=== PATIENT | male | born 1985 | race Caucasian/White ===

== ENCOUNTER 2017-03-26 21:59 | Emergency (ER) | payer SELFPAY ==
[~2017-03-26] VITALS: Ht 170.2 cm; Wt 97.5 kg
[2017-03-26 22:03] VITALS: Ht 170.2 cm; Wt 97.5 kg
[2017-03-26] MEDS ORDERED: KETOROLAC 60 MG INJ IM STA (22:33)
[2017-03-26] MEDS ORDERED: NAPR-688 PO (22:52)
[2017-03-26] MEDS ORDERED: HYDR-906 PO (22:52)
[2017-03-26] MEDS ORDERED: morphine 10 MG INJ IM ONE (23:00)
--- NOTE | 2017-03-26 23:40 | ERD ---
ER Documentation Chief Complaint Date/Time DATE: 03/26/17 TIME: 23:37 Chief Complaint left rib pain after hyperextension of arms during exercises HPI 32-year-old male presents with left-sided chest pain that began approximately 40 minutes prior to arrival. He was playing video games at home when he suddenly lift his arms up to stretch suddenly got left-sided chest pain that hurt with arm movement as well as when he took a deep breath and let the breath out. He has been lifting heavy things all week is that as his occupation. He has no shortness of breath, nausea or vomiting. Denies any cardiac risk factor. ROS All systems reviewed and are negative except as per history of present illness. Medications Home Meds Active Scripts Hydrocodone/Acetaminophen ([place] 5-325 Tablet) 1 Each Tablet, 1 EACH PO Q6, #20 TAB Prov:FLASH PETE DO 03/26/17 Naproxen* (Naproxen*) 500 Mg Tablet, 500 MG PO BID, #20 TAB Prov:FLASH PETE DO 03/26/17 Allergies Allergies: Coded Allergies: No Known Allergy (Unverified , 03/26/17) PMhx/Soc Medical and Surgical Hx: pt denies Medical Hx, pt denies Surgical Hx Hx Alcohol Use: No Hx Substance Use: No Hx Tobacco Use: No Smoking Status: Never smoker Physical Exam Vitals Vital Signs Date Time Temp Pulse Resp B/P Pulse Ox O2 Delivery O2 Flow Rate FiO2 03/26/17 22:03 97.8 64 20 122/73 99 Physical Exam Const: [] Mild distress Eyes: Normal Conjunctiva ENT: Normal External Ears, Nose and Mouth. Neck: Full range of motion..~ No meningismus. Resp: Clear to auscultation bilaterally Cardio: Regular rate and rhythm, no murmurs Skin: No petechiae or rashes Ext: No cyanosis, or edema, Left chest wall with exquisite tenderness to the upper ribs along the costochondral junction on the left chest. Neur: Awake and alert Results 24 hrs Current Medications Medications (Trade) Dose Ordered Sig/Roseann Route PRN Reason Start Time Stop Time Status Last Admin Dose Admin Ketorolac Tromethamine (Toradol) 60 mg ONCE STAT IM 03/26/17 22:33 03/26/17 22:36 DC 03/26/17 22:56 Morphine Sulfate (morphine) 4 mg ONCE ONCE IM 03/26/17 23:00 03/26/17 23:01 DC 03/26/17 22:55 Procedures/MDM 32-year-old male with costochondritis. History and physical exam are consistent with costochondritis. Patient did not mention some left hand tingling EKG was performed which shows no signs of ischemia whatsoever. We will discharge her with naproxen with instructions to take it for 7 days straight also giving [place] for severe pain. Primary care follow-up in 2 3 days and strict return precautions. EKG interpretation: Normal sinus rhythm rate of 60, normal axis, no ST or T- wave changes concerning for acute ischemia, near normal intervals. Normal EKG Departure Diagnosis: Primary Impression: Costochondritis, acute Condition: Stable Patient Instructions: Chest Wall Pain, Costochondritis Referrals: [facility] YOU HAVE RECEIVED A MEDICAL SCREENING EXAM AND THE RESULTS INDICATE THAT YOU DO NOT HAVE A CONDITION THAT REQUIRES URGENT TREATMENT IN THE EMERGENCY DEPARTMENT. FURTHER EVALUATION AND TREATMENT OF YOUR CONDITION CAN WAIT UNTIL YOU ARE SEEN IN YOUR DOCTORS OFFICE WITHIN THE NEXT 1-2 DAYS. IT IS YOUR RESPONSIBILITY TO MAKE AN APPOINTMENT FOR [facility]. IF YOU HAVE A PRIMARY DOCTOR --you should call your primary doctor and schedule an appointment IF YOU DO NOT HAVE A PRIMARY DOCTOR YOU CAN CALL OUR PHYSICIAN REFERRAL HOTLINE AT IF YOU CAN NOT AFFORD TO SEE A PHYSICIAN YOU CAN CHOSE FROM THE FOLLOWING [facility] [address] [facility]. [facility] [address] [facility] [facility] [address] [facility] [facility] [address] [facility]. [facility] [address] [facility]. [facility]. [address] Additional Instructions: Call your primary care doctor TOMORROW for an appointment during the next 2-3 days.See the doctor sooner or return here if your condition worsens before your appointment time. FLASH PETE DO Mar 26, 2017 23:40
[2017-03-26 23:50] VITALS: BP 109/68; PULSE 66; RESP 20
== END 2017-03-26 23:52 | disposition home or self-care (01) ==
LOC: FTE 21:59
DX: M94.0 Chondrocostal junction syndrome [Tietze] (principal)
CPT/HCPCS: 93005; 96372; 99284; J1885; J2270